=== PATIENT | male | born 1945 | race Caucasian/White ===

== ENCOUNTER 2023-12-02 08:14 | Outpatient (RCR) | payer OTHER, SELFPAY ==
[2023-11-06 10:31] LABS: Glucose - Point of Care 101 mg/dl (70-99)
[2023-11-09 08:11] LABS: Glucose - Point of Care 89 mg/dl (70-99)
[2023-11-11 08:07] LABS: Glucose - Point of Care 71 mg/dl (70-99)
[2023-11-11 08:28] LABS: Glucose - Point of Care 71 mg/dl (70-99)
[2023-11-11 08:49] LABS: Glucose - Point of Care 98 mg/dl (70-99)
[2023-11-13 08:18] LABS: Glucose - Point of Care 124 mg/dl (70-99)
[2023-11-13 09:15] LABS: Glucose - Point of Care 120 mg/dl (70-99)
[2023-11-16 08:19] LABS: Glucose - Point of Care 101 mg/dl (70-99)
[2023-11-16 09:14] LABS: Glucose - Point of Care 152 mg/dl (70-99)
[2023-11-18 08:14] LABS: Glucose - Point of Care 152 mg/dl (70-99)
[2023-11-18 09:07] LABS: Glucose - Point of Care 136 mg/dl (70-99)
[2023-11-23 08:20] LABS: Glucose - Point of Care 179 mg/dl (70-99)
[2023-11-23 09:01] LABS: Glucose - Point of Care 167 mg/dl (70-99)
[2023-11-25 08:11] LABS: Glucose - Point of Care 186 mg/dl (70-99)
[2023-11-25 08:58] LABS: Glucose - Point of Care 169 mg/dl (70-99)
[2023-11-27 08:27] LABS: Glucose - Point of Care 210 mg/dl (70-99)
[2023-11-27 09:28] LABS: Glucose - Point of Care 167 mg/dl (70-99)
[2023-11-30 08:20] LABS: Glucose - Point of Care 144 mg/dl (70-99)
[2023-11-30 09:16] LABS: Glucose - Point of Care 126 mg/dl (70-99)
[2023-12-02 08:04] LABS: Glucose - Point of Care 226 mg/dl (70-99)
== END 2023-12-02 23:59 | disposition home or self-care (01) ==
LOC: CRHB 08:14
PROVIDERS: ATTENDING PHYSICIAN Internal Medicine Cardiovascular Disease
DX: I25.10 Atherosclerotic heart disease of native coronary artery without angina pectoris (principal); Z95.1 Presence of aortocoronary bypass graft; I25.2 Old myocardial infarction
CPT/HCPCS: 82962; G0422; G0423

== ENCOUNTER 2023-12-30 08:13 | Outpatient (RCR) | payer OTHER, SELFPAY ==
[2023-12-23 08:18] LABS: Glucose - Point of Care 175 mg/dl (70-99)
== END 2023-12-30 23:59 | disposition home or self-care (01) ==
LOC: CRHB 08:13
PROVIDERS: ATTENDING PHYSICIAN Internal Medicine Cardiovascular Disease; FAMILY PHYSICIAN Family Medicine
DX: I25.10 Atherosclerotic heart disease of native coronary artery without angina pectoris (principal); Z95.1 Presence of aortocoronary bypass graft; I25.2 Old myocardial infarction
CPT/HCPCS: 82962; G0422; G0423

== ENCOUNTER 2024-01-27 07:54 | Outpatient (RCR) | payer OTHER, SELFPAY ==
[2024-01-18 09:11] LABS: HDL Cholesterol 57 mg/dl; LDL Cholesterol, Calculated 30 mg/dl; Total Cholesterol 107 mg/dl (50-199); Triglyceride 103 mg/dl (10-149); Very Low Density Lipoprotein 20 mg/dl (0-30)
== END 2024-01-27 23:59 | disposition home or self-care (01) ==
LOC: CRHB 07:54
PROVIDERS: ATTENDING PHYSICIAN Internal Medicine Cardiovascular Disease; FAMILY PHYSICIAN Family Medicine; REFERRING PHYSICIAN Internal Medicine Cardiovascular Disease
DX: Z95.1 Presence of aortocoronary bypass graft (principal); I25.2 Old myocardial infarction
CPT/HCPCS: 80061; G0422; G0423

== ENCOUNTER 2024-02-12 08:22 | Emergency (ER) | payer OTHER, SELFPAY ==
[2024-02-12 08:22] VITALS: BMI 30.6
[2024-02-12 08:23] VITALS: BP 186/97
--- NOTE | 2024-02-12 09:41 | ED.GENMED ---
History of Present Illness
General
Chief Complaint: Blood Pressure Problem
Source: patient
Time Seen by Provider: 02/12/24 09:10
Travel History
Have you had any contact with someone who has COVID-19?: No
Do you have any symptoms of coronavirus? Fever > 100 degrees, chills, cough, shortness of breath, sore throat, loss of taste or smell, muscle aches, or headache?: No
History of Present Illness
History of Present Illness:
This patient is a 78-year-old male who had a cardiac bypass in September, just finished cardiac rehab at the end of December. He was noted to have elevated blood pressure on around February 04 and has been instructed to every day. He has noticed that it
has been elevated at home. He went to cardiac rehab today to confirm the accuracy of this reading and his blood pressure was reportedly noted to be in the 200s over 100s. He was referred to the emergency department. Patient is generally compliant
with his medications. He denies any symptoms. He specifically denies chest pain, headache, dizziness, numbness, tingling, dyspnea, abdominal pain, or other complaints.
Past History
Past History
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
ED Past Surgical History: Appendectomy, Bowel resection (Colon CA with Ileostomy with Reversal), Cardiac (Stents X1), Cholecystectomy and Other (Colon resection for diverticulitis and then again recently for colon cancer.)
Social History
Tobacco: Non-smoker
Alcohol: Occasional
Drug: None
Personal:
Living: with family
Employment: Employed
Family History
Family History: Diabetes, Hypertension and CAD
Phy Exam
Physical Exam
Physical Exam:
GENERAL: Alert , in no apparent distress
EYE: pupils equal and reactive
NECK: Supple, no significant adenopathy.
ENT: o/p clr, mmm.
CARDIAC: Regular rate and rhythm .
LUNGS: Clear breath sounds bilaterally, no acute respiratory distress, no wheezes/rales/rhonchi
ABDOMEN: Soft, without focal tenderness, no r/g, no cvat
NEUROLOGICAL: Alert and oriented, no focal neuro deficits
SKIN: Warm and dry, skin intact.
MUSCULOSKELETAL: No edema, well perfused.
PSYCH: Normal and appropriate interaction.
Course
Orders/Labs/Results
Orders:
Orders
02/12/24 10:14
Lisinopril [Zestril] 5 mg PO NOW STA
Vital Signs
Initial and Last Documented VS:
Initial Vital Signs
Pulse Resp BP Pulse Ox
67 18 186/97 95
02/12/24 08:23 02/12/24 08:23 02/12/24 08:23 02/12/24 08:23
Last Documented Vital Signs
Pulse Resp BP Pulse Ox
62 12 162/86 95
02/12/24 10:00 02/12/24 10:00 02/12/24 10:00 02/12/24 08:23
*Critical Care Note
Total Time (30-74mins, 75-104mins- exclusive of procedures): Not Applicable
Update Note
Update Note:
Patient presents to the Emergency Department with ___elevated blood pressure
Number and Complexity of Problems Addressed at the Encounter
� Chronic conditions affecting care:
� Acute Exacerbation and/or Progression of Chronic Illness:
� Differential Diagnosis includes: But not limited to medication noncompliance, medication resistant hypertension, etc.
Amount and/or Complexity of Data to be Reviewed and Analyzed
� I performed an independent evaluation of and my interpretation is:
EKG:
CT:
Xrays:
Laboratory Studies:
Other:
� Review of other/old records reveals: [facility], noted to be on metoprolol 25 daily
� Clinical information was obtained by an independent historian:
� Prescriptions/Medications Considered but not given:
� Further testing considered but not performed:
Risk of Complications and/or Morbidity or Mortality of Patient Management
� Social determinants of health affecting care:
� Discussion with other providers (PCP, Hospitalists, Consultants, etc):
� Escalation of care including admission/observation vs risk of discharge considered:10:17 AM Case discussed with Dr. Dobbs via [facility] text, aware of history, physical, vitals, etc. He confirmed his medication list through
office records and recommends either increasing his beta-sanjay or adding a BEN inhibitor. I informed him that I will add an BEN inhibitor, lisinopril 5 mg daily, and Dr. Osuna and his office will follow-up with patient within 2 weeks and
check a BMP at that time. Patient advised about importance of follow-up and reasons to return to the emergency department. He remains asymptomatic, and therefore workup not indicated here in the emergency department otherwise.
ED Attending Note
-
Portions of this chart may have been created with voice recognition software.� Occasional wrong word or��sound alike� substitutions may have occurred due to the inherent limitations of voice recognition software.
Discharge Plan
Departure
Patient Disposition: Home (Routine Discharge)
Date of Disposition: 02/12/24
Time of Disposition: 10:14
Patient with high blood pressure during this ER visit?: Yes
Condition: Good
Discharge Problem:
Hypertension
Instructions: High Blood Pressure (DC), BLOOD PRESSURE
Prescriptions:
New
lisinopril 5 mg tablet
5 mg PO DAILY Qty: 30 0RF
No Action
aspirin 81 MG tablet,delayed release (DR/EC)
81 mg PO HS
oxycodone 5 MG tablet
5 mg PO Q6HPRN PRN (Reason: pain)
Patient Comments:
Last filled 06/09/23 #90 x30 day supply
insulin aspart U-100 [Novolog FlexPen U-100 Insulin] 100 unit/mL (3 mL) Insulin Pen
11 unit SC AC Qty: 5 0RF
Rx Instructions:
E11.65
insulin glargine [Lantus Solostar U-100 Insulin] 100 unit/mL (3 mL) Insulin Pen
22 unit SC HS Qty: 5 0RF
Rx Instructions:
E11.65
acetaminophen 325 mg Tablet
650 mg PO Q4HPRN PRN (Reason: mild pain,headache,temp >101F ) Qty: 0 0RF
gabapentin 400 mg Capsule
400 mg PO BID Qty: 60 0RF
metoprolol succinate 25 mg Tablet Extended Release 24 Hr
25 mg PO DAILY Qty: 30 1RF
atorvastatin 40 mg Tablet
40 mg PO HS Qty: 30 0RF
(DME) pen needle, diabetic [BD Ultra-Fine Vandana Pen Needle] 32 gauge x 5/32' Needle
Qty: 200 0RF
Rx Instructions:
Use needles 4 x per day for insulin injections As Directed E11.65
Referrals:
Karel Gustafson DO [Active] - Next open appointment (in 2 weeks)
Nick Mccray MD [Family Provider] -
Activity Restrictions/Additional Instructions:
PLEASE RECORD YOUR BLOOD PRESSURE DIRECTED EVERY DAY. PLEASE MAKE AN APPOINTMENT TO SEE YOUR RESPITE PROVIDER IN FOLLOW-UP WITHIN 2 WEEKS. YOU WILL NEED BLOOD WORK CHECKED AT THAT TIME. IF YOU DEVELOP SEVERE HEADACHE, CHEST PAIN, SHORTNESS OF
BREATH, ABDOMINAL PAIN, OR OTHER WORRISOME SIGNS, PLEASE RETURN TO THE ER IMMEDIATELY.
Interventions
Interventions:
*Risk Screen - Suicide Last Done: 02/12/24 10:03
*General Assessment Last Done: 02/12/24 10:03
*Neglect/Abuse Screening Last Done: 02/12/24 10:03
*ED COVID-19 Vaccine History Last Done: 02/12/24 10:09
ED- Cardiac Assessment Last Done: 02/12/24 10:03
ED- Neurological Assessment Last Done: 02/12/24 10:03
ED- Pulmonary Assessment Last Done: 02/12/24 10:03
Discharge Date and Time
Print Language: ARABIC
[2024-02-12 10:00] VITALS: BP 162/86
[2024-02-12] MEDS: ZESTRIL 5 MG PO (10:33)
== END 2024-02-12 10:39 | disposition home or self-care (01) ==
LOC: EMR 08:22
PROVIDERS: EMERGENCY PHYSICIAN Emergency Medicine; FAMILY PHYSICIAN Family Medicine
DX: I10 Essential (primary) hypertension (principal)
CPT/HCPCS: 99283

== ENCOUNTER → 2024-02-29 07:15 | Outpatient (REF) | payer OTHER, SELFPAY ==
[2024-02-29 08:39] LABS: Blood Urea Nitrogen 25 mg/dl (9-20); Calcium 9.4 mg/dl (8.4-10.2); Carbon Dioxide 26 mmol/L (22-30); Chloride 104 mmol/L (98-107); Glucose 87 mg/dl (70-99); Potassium 4.2 mmol/L (3.5-5.1); Sodium 140 mmol/L (135-145); eGFR 51.13
== END ==
LOC: REG 07:15
PROVIDERS: ATTENDING PHYSICIAN Internal Medicine Cardiovascular Disease; FAMILY PHYSICIAN Family Medicine
DX: I25.10 Atherosclerotic heart disease of native coronary artery without angina pectoris (principal); I10 Essential (primary) hypertension; E78.2 Mixed hyperlipidemia
CPT/HCPCS: 36415; 80048

== ENCOUNTER → 2024-03-29 07:53 | Outpatient (REF) | payer OTHER, SELFPAY ==
[2024-03-29 08:59] LABS: Blood Urea Nitrogen 22 mg/dl (9-20); Calcium 9.6 mg/dl (8.4-10.2); Carbon Dioxide 27 mmol/L (22-30); Chloride 105 mmol/L (98-107); Glucose 141 mg/dl (70-99); Potassium 5.2 mmol/L (3.5-5.1); Sodium 143 mmol/L (135-145); eGFR > 60.00
== END ==
LOC: REG 07:53
PROVIDERS: ATTENDING PHYSICIAN Internal Medicine Cardiovascular Disease
DX: I10 Essential (primary) hypertension (principal)
CPT/HCPCS: 36415; 80048

== ENCOUNTER → 2024-04-04 07:37 | Outpatient (REF) | payer OTHER, SELFPAY ==
[2024-04-04 09:23] LABS: Blood Urea Nitrogen 21 mg/dl (9-20); Calcium 9.3 mg/dl (8.4-10.2); Carbon Dioxide 28 mmol/L (22-30); Chloride 104 mmol/L (98-107); Glucose 133 mg/dl (70-99); Potassium 4.6 mmol/L (3.5-5.1); Sodium 141 mmol/L (135-145); eGFR 55.88
== END ==
LOC: REG 07:37
PROVIDERS: ATTENDING PHYSICIAN Nurse Practitioner
DX: I10 Essential (primary) hypertension (principal)
CPT/HCPCS: 36415; 80048

== ENCOUNTER → 2024-04-15 06:58 | Outpatient (REF) | payer OTHER, SELFPAY ==
[2024-04-15 08:46] LABS: Blood Urea Nitrogen 26 mg/dl (9-20); Calcium 9.2 mg/dl (8.4-10.2); Carbon Dioxide 26 mmol/L (22-30); Chloride 106 mmol/L (98-107); Glucose 133 mg/dl (70-99); Potassium 4.5 mmol/L (3.5-5.1); Sodium 143 mmol/L (135-145); eGFR > 60.00
== END ==
LOC: REG 06:58
PROVIDERS: ATTENDING PHYSICIAN Internal Medicine Cardiovascular Disease; FAMILY PHYSICIAN Family Medicine
DX: I10 Essential (primary) hypertension (principal)
CPT/HCPCS: 36415; 80048

== ENCOUNTER → 2024-05-24 13:27 | Outpatient (REF) | payer OTHER, SELFPAY | LOC: RAD 13:27 | PROVIDERS: ATTENDING PHYSICIAN Internal Medicine Cardiovascular Disease; FAMILY PHYSICIAN Family Medicine | DX: I1A.0 Resistant hypertension (principal); I10 Essential (primary) hypertension | CPT/HCPCS: 36415; 82088; 83835; 84244; 93975 ==

== ENCOUNTER 2024-07-25 09:18 | Emergency (ER) | payer OTHER, SELFPAY ==
[2024-07-25 09:27] VITALS: BP 150/89
--- NOTE | 2024-07-25 09:48 | ED.GENMED ---
History of Present Illness
General
Chief Complaint: Swelling
Time Seen by Provider: 07/25/24 09:34
History of Present Illness
History of Present Illness:
78-year-old male with history of coronary artery disease status post CABG x 3 and insulin-dependent diabetes presents to the emergency department for evaluation of bilateral lower extremity edema waxing and waning over the past 4 to 5 days. He is
concerned that he had a spider bite to the left forearm and that this may be related. Edema does seem to improve first thing in the morning before worsening throughout the day. Denies any distal paresthesias. No fever, chills, or sweats
Past History
Past History
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
ED Past Surgical History: Appendectomy, Bowel resection (Colon CA with Ileostomy with Reversal), Cardiac (Stents X1), Cholecystectomy and Other (Colon resection for diverticulitis and then again recently for colon cancer.)
Social History
Tobacco: Non-smoker
Alcohol: Occasional
Drug: None
Personal:
Living: with family
Employment: Employed
Family History
Family History: Diabetes, Hypertension and CAD
Review of Systems
Review of Systems
Allergies reviewed?: Yes
All Other Systems: ROS reviewed and negative except as documented in HPI and ROS
Phy Exam
Physical Exam
Physical Exam:
GEN: Well appearing, NAD, WDWN
HEENT: Oral mucosa moist, no scleral icterus
Cardiac: Regular rate
Lung: No respiratory distress, no tachypnea
MSK: Diffuse edema bilateral lower extremities from the mid calf down, dorsalis pedis pulse 2+ bilaterally, sensation intact in all rascon, no erythema or open wounds
Skin: Good color, no pallor or jaundice, no rashes
Neuro: AO x3, moves all extremities freely
Psych: Calm, cooperative
Scores
Heart Failure Risk
Heart Failure Risk Score: Not Applicable
Course
Orders/Labs/Results
Orders:
Orders
07/25/24 09:48
Venous Doppler Lwr Ext Bilat [US Periph Venous LOWER Ext Savage] Urgent
Comment:
Reason For Exam: new onset edema
Vital Signs
Initial and Last Documented VS:
Initial Vital Signs
Temp Pulse Resp BP Pulse Ox
98.0 F 72 18 150/89 96
07/25/24 09:27 07/25/24 09:27 07/25/24 09:27 07/25/24 09:27 07/25/24 09:27
Last Documented Vital Signs
Temp Pulse Resp BP Pulse Ox
98.2 F 79 18 147/78 98
07/25/24 09:27 07/25/24 10:43 07/25/24 10:43 07/25/24 10:43 07/25/24 10:43
MDM/Problems Addressed
MDM/Problems Addressed:
Ultrasounds unremarkable for DVT. Likely dependent edema, educated the patient on supportive care, he will see his rolled seat trimmer Thursday recommend he discuss any potential benefit of diuresis if symptoms are worsening. He has no respiratory symptoms
or chest pain, do not suspect any correlation to CHF
*Critical Care Note
Total Time (30-74mins, 75-104mins- exclusive of procedures): Not Applicable
ED Attending Note
-
Portions of this chart may have been created with voice recognition software.� Occasional wrong word or��sound alike� substitutions may have occurred due to the inherent limitations of voice recognition software.
Discharge Plan
Departure
Patient Disposition: Home (Routine Discharge)
Date of Disposition: 07/25/24
Time of Disposition: 12:19
Patient with high blood pressure during this ER visit?: No
Discharge Problem:
Bilateral edema of lower extremity
Instructions: Dependent Edema (DC)
Prescriptions:
No Action
aspirin 81 MG tablet,delayed release (DR/EC)
81 mg PO HS
oxycodone 5 MG tablet
5 mg PO Q6HPRN PRN (Reason: pain)
Patient Comments:
Last filled 06/09/23 #90 x30 day supply
insulin aspart U-100 [Novolog FlexPen U-100 Insulin] 100 unit/mL (3 mL) Insulin Pen
11 unit SC AC Qty: 5 0RF
Rx Instructions:
E11.65
insulin glargine [Lantus Solostar U-100 Insulin] 100 unit/mL (3 mL) Insulin Pen
22 unit SC HS Qty: 5 0RF
Rx Instructions:
E11.65
acetaminophen 325 mg Tablet
650 mg PO Q4HPRN PRN (Reason: mild pain,headache,temp >101F ) Qty: 0 0RF
gabapentin 400 mg Capsule
400 mg PO BID Qty: 60 0RF
metoprolol succinate 25 mg Tablet Extended Release 24 Hr
25 mg PO DAILY Qty: 30 1RF
atorvastatin 40 mg Tablet
40 mg PO HS Qty: 30 0RF
(DME) pen needle, diabetic [BD Ultra-Fine Vandana Pen Needle] 32 gauge x 5/32' Needle
Qty: 200 0RF
Rx Instructions:
Use needles 4 x per day for insulin injections As Directed E11.65
lisinopril 5 mg tablet
5 mg PO DAILY Qty: 30 0RF
Referrals:
Nick Mccray MD [Family Provider] -
Interventions
Interventions:
*Risk Screen - Suicide Last Done: 07/25/24 09:27
*General Assessment Last Done: 07/25/24 09:27
*Neglect/Abuse Screening Last Done: 07/25/24 09:27
*Nursing Disposition Last Done: 07/25/24 12:26
ED- Cardiac Assessment Last Done: 07/25/24 10:34
ED- Pulmonary Assessment Last Done: 07/25/24 10:33
ED-Skin Assessment Last Done: 07/25/24 10:33
Discharge Date and Time
Discharge Date/Time: 07/25/24 12:26
Print Language: ROMANIAN
[2024-07-25 10:43] VITALS: BP 147/78
== END 2024-07-25 12:26 | disposition home or self-care (01) ==
LOC: EMR 09:18
PROVIDERS: EMERGENCY PHYSICIAN Emergency Medicine; FAMILY PHYSICIAN Family Medicine
DX: R60.0 Localized edema (principal); I25.10 Atherosclerotic heart disease of native coronary artery without angina pectoris; E11.9 Type 2 diabetes mellitus without complications; E78.00 Pure hypercholesterolemia, unspecified; I10 Essential (primary) hypertension; I25.2 Old myocardial infarction; Z79.82 Long term (current) use of aspirin; Z79.4 Long term (current) use of insulin; Z86.718 Personal history of other venous thrombosis and embolism; Z86.711 Personal history of pulmonary embolism; Z85.048 Personal history of other malignant neoplasm of rectum, rectosigmoid junction, and anus; Z85.038 Personal history of other malignant neoplasm of large intestine; Z95.1 Presence of aortocoronary bypass graft; Z95.5 Presence of coronary angioplasty implant and graft; Z90.49 Acquired absence of other specified parts of digestive tract; Z98.0 Intestinal bypass and anastomosis status; Z88.8 Allergy status to other drugs, medicaments and biological substances
CPT/HCPCS: 99284; 93970

== ENCOUNTER 2024-08-09 14:33 | Emergency (ER) | payer OTHER, SELFPAY ==
--- NOTE | 2024-08-09 14:44 | ED.GENMED ---
ED Provider Triage
-
Patient seen by provider in Triage?: Seen in Triage
Attestation: A medical screening examination has been initiated by a qualified medical provider. Based on the assessment performed at this time, it has been determined that an emergent medical condition may exist and the patient has been informed
that further medical evaluation and possible additional diagnostic testing may be needed.
HPI: 78-year-old male with history of CAD status post CABG presents with mid to upper back pain occurring intermittently for the past several weeks. Pain is not constant, nonpleuritic. Does note that he has had increased lower extremity edema
recently. Recent DVT studies were negative. Pain is worse when attempting to get up
GENERAL: Alert , in no apparent distress
EYE: No visual abnormalities.
NECK: Trachea midline
ENT: No visible abnormalities.
LUNGS: No acute respiratory distress
NEUROLOGICAL: Alert and oriented
SKIN: Skin intact. No visible changes.
MUSCULOSKELETAL: Moving extremities normally
PSYCH: Normal and appropriate interaction.
A/P: Reassuring that he has movement based pain, this is likely mechanical nevertheless given his coronary disease will check EKG and cardiac labs. Low level suspicion for PE given the intermittent nature, lack of pleuritic pain, and recent
negative DVT studies thus will not obtain a D-dimer at this time
This is a medical evaluation conducted in person to initiate diagnostic evaluation and provide initial therapeutics. Please see further documentation by the treating clinician.
History of Present Illness
General
Chief Complaint: Back Pain
Past History
Past History
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
ED Past Surgical History: Appendectomy, Bowel resection (Colon CA with Ileostomy with Reversal), Cardiac (Stents X1), Cholecystectomy and Other (Colon resection for diverticulitis and then again recently for colon cancer.)
Social History
Tobacco: Non-smoker
Alcohol: Occasional
Drug: None
Personal:
Living: with family
Employment: Employed
Family History
Family History: Diabetes, Hypertension and CAD
Course
Orders/Labs/Results
Orders:
Orders
08/09/24 14:39
ECG [Electrocardiogram (*1)] Urgent
Reason for Study: Chest Pain
EKG- Treatment ONCE
08/09/24 14:44
Complete Blood Count/With Diff Urgent
Comprehensive Metabolic Panel Urgent
D-Dimer Urgent
Troponin I Urgent
Vital Signs
Initial and Last Documented VS:
Initial Vital Signs
Temp Pulse Resp Pulse Ox
98.0 F 63 18 97
08/09/24 14:40 08/09/24 14:40 08/09/24 14:40 08/09/24 14:40
Last Documented Vital Signs
Temp Pulse Resp Pulse Ox
98.0 F 63 18 97
08/09/24 14:40 08/09/24 14:40 08/09/24 14:40 08/09/24 14:40
ED Attending Note
-
Portions of this chart may have been created with voice recognition software.� Occasional wrong word or��sound alike� substitutions may have occurred due to the inherent limitations of voice recognition software.
Discharge Plan
Departure
Prescriptions:
No Action
aspirin 81 MG tablet,delayed release (DR/EC)
81 mg PO HS
oxycodone 5 MG tablet
5 mg PO Q6HPRN PRN (Reason: pain)
Patient Comments:
Last filled 06/09/23 #90 x30 day supply
insulin aspart U-100 [Novolog FlexPen U-100 Insulin] 100 unit/mL (3 mL) Insulin Pen
11 unit SC AC Qty: 5 0RF
Rx Instructions:
E11.65
insulin glargine [Lantus Solostar U-100 Insulin] 100 unit/mL (3 mL) Insulin Pen
22 unit SC HS Qty: 5 0RF
Rx Instructions:
E11.65
acetaminophen 325 mg Tablet
650 mg PO Q4HPRN PRN (Reason: mild pain,headache,temp >101F ) Qty: 0 0RF
gabapentin 400 mg Capsule
400 mg PO BID Qty: 60 0RF
metoprolol succinate 25 mg Tablet Extended Release 24 Hr
25 mg PO DAILY Qty: 30 1RF
atorvastatin 40 mg Tablet
40 mg PO HS Qty: 30 0RF
(DME) pen needle, diabetic [BD Ultra-Fine Vandana Pen Needle] 32 gauge x 5/32' Needle
Qty: 200 0RF
Rx Instructions:
Use needles 4 x per day for insulin injections As Directed E11.65
lisinopril 5 mg tablet
5 mg PO DAILY Qty: 30 0RF
Discharge Date and Time
Print Language: KAZAKH
[2024-08-09 14:45] VITALS: BP 170/75
[2024-08-09 15:13] LABS: % Basophils 0.7 % (0-2); % Eosinophils 1.6 % (0-6); % Immature Granulocytes 0.2 % (0-0.5); % Lymphocytes 14.2 % (20.5-51.1); % Monocytes 8.2 % (1.7-9.3); % Neutrophils 75.1 % (42.2-75.2); Absolute Eosinophils 0.1 10^3/uL (0-0.7); Absolute Lymphocytes 0.6 10^3/uL (1.2-3.4); Absolute Monocytes 0.4 10^3/uL (0.1-0.6); Absolute Neutrophils 3.3 10^3/uL (1.4-6.5); Hematocrit 37.2 % (39.0-52.0); Hemoglobin 13.1 g/dL (13.0-18.0); Mean Corp Hgb Conc. 35.2 g/dL (33.0-37.0); Mean Corpuscular Hgb 31.6 pg (27.0-31.0); Mean Corpuscular Volume 89.6 fL (80.0-94.0); Mean Platelet Volume 10.8 fL (7.4-10.4); Nucleated Red Blood Cells % 0 % (-); Platelet Count 154 10^3/uL (130-400); Red Blood Cell Count 4.15 10^6/uL (4.70-6.10); Red Cell Dist. Width 13.2 % (11.5-14.5); White Blood Cell Count 4.4 10^3/uL (4.8-10.8)
[2024-08-09 15:21] LABS: ALT (SGPT) 25 U/L (0-50); AST (SGOT) 25 U/L (17-59); Albumin 4.1 g/dl (3.5-5.0); Alkaline Phosphatase 92 U/L (38-126); Blood Urea Nitrogen 19 mg/dl (9-20); Calcium 8.8 mg/dl (8.4-10.2); Carbon Dioxide 27 mmol/L (22-30); Chloride 104 mmol/L (98-107); Glucose 276 mg/dl (70-99); Potassium 4.3 mmol/L (3.5-5.1); Sodium 141 mmol/L (135-145); Total Bilirubin 1.5 mg/dl (0.2-1.3); Total Protein 6.6 g/dl (6.3-8.2); eGFR > 60.00
[2024-08-09 15:33] LABS: Troponin I < 0.012 ng/ml
[2024-08-09 19:38] LABS: D-Dimer 0.48 ug/mlFEU (0.00-0.50)
[2024-08-09 20:50] VITALS: BP 154/82
--- NOTE | 2024-08-10 10:09 | ED.GENMED ---
ED Provider Triage
<Devante Platt PA-C - Last Filed: 08/10/24 15:55>
-
Patient seen by provider in Triage?: Seen in Triage
Attestation: A medical screening examination has been initiated by a qualified medical provider. Based on the assessment performed at this time, it has been determined that an emergent medical condition may exist and the patient has been informed
that further medical evaluation and possible additional diagnostic testing may be needed.
HPI: 78-year-old male with history of CAD status post CABG presents with mid to upper back pain occurring intermittently for the past several weeks. Pain is not constant, nonpleuritic. Does note that he has had increased lower extremity edema
recently. Recent DVT studies were negative. Pain is worse when attempting to get up
GENERAL: Alert , in no apparent distress
EYE: No visual abnormalities.
NECK: Trachea midline
ENT: No visible abnormalities.
LUNGS: No acute respiratory distress
NEUROLOGICAL: Alert and oriented
SKIN: Skin intact. No visible changes.
MUSCULOSKELETAL: Moving extremities normally
PSYCH: Normal and appropriate interaction.
A/P: Reassuring that he has movement based pain, this is likely mechanical nevertheless given his coronary disease will check EKG and cardiac labs. Low level suspicion for PE given the intermittent nature, lack of pleuritic pain, and recent
negative DVT studies thus will not obtain a D-dimer at this time
This is a medical evaluation conducted in person to initiate diagnostic evaluation and provide initial therapeutics. Please see further documentation by the treating clinician.
History of Present Illness
<Devante Platt PA-C - Last Filed: 08/10/24 15:55>
General
Chief Complaint: Back Pain
Time Seen by Provider: 08/09/24 17:08
<Laura Rachel NP - Last Filed: 08/10/24 15:42>
General
Source: patient
Nursing documentation reviewed up to this point in time: agreed with
History of Present Illness
History of Present Illness:
Patient to ED with complaint of middle back pain. Symptoms started 2 weeks ago. No associated fever/chills, SOB, cough, abdomina pain, n/v/d. Pain worse with movement. No weakness in extremities, no history of trauma, no prior history of same.
Past History
<Devante Platt PA-C - Last Filed: 08/10/24 15:55>
Past History
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
ED Past Surgical History: Appendectomy, Bowel resection (Colon CA with Ileostomy with Reversal), Cardiac (Stents X1), Cholecystectomy and Other (Colon resection for diverticulitis and then again recently for colon cancer.)
Social History
Tobacco: Non-smoker
Alcohol: Occasional
Drug: None
Personal:
Living: with family
Employment: Employed
Family History
Family History: Diabetes, Hypertension and CAD
Review of Systems
<Laura Rachel NP - Last Filed: 08/10/24 15:42>
Review of Systems
Allergies reviewed?: Yes
All Other Systems: ROS reviewed and negative except as documented in HPI and ROS
Constitutional: Reports no symptoms
EENT: Reports no symptoms
Respiratory: Reports no symptoms
Cardiac: Reports no symptoms
ABD/GI: Reports no symptoms
: Reports no symptoms
Musculoskeletal: Reports back pain (Pain across middle back. No radiation of pain, no weakness in extremities.)
Skin: Reports no symptoms
Neurological: Reports no symptoms
Psychiatric: Reports no symptoms
Phy Exam
<Laura Rachel NP - Last Filed: 08/10/24 15:42>
General Physical Exam
General Presentation: well appearing and no apparent distress
General age: appears stated age
General Skin: warm and dry
General Habitus: normal
General Mental: alert
General Hydration: appears well hydrated
Cardiovascular Exam
Cardiovascular Exam: regular rate/rhythm and no edema
Pulmonary Exam
Pulmonary Exam: lungs clear, no respiratory distress and chest non tender
Gastrointestinal Exam
Gastrointestinal Exam: normal bowel sounds, non tender, soft and no organomegaly
Musculoskeletal Exam
Musculoskeletal Exam: full ROM and neuro vasc intact
Skin Exam
Skin Exam: normal color, warm/dry and no rash
Psychiatric Exam
Psychiatric Exam: normal mood/affect
Course
<Devante Platt PA-C - Last Filed: 08/10/24 15:55>
Orders/Labs/Results
Orders:
Orders
08/09/24 14:39
ECG [Electrocardiogram (*1)] Urgent
Reason for Study: Chest Pain
EKG- Treatment ONCE
08/09/24 14:55
Complete Blood Count/With Diff Urgent
Comprehensive Metabolic Panel Urgent
Troponin I Urgent
08/09/24 18:36
Chest [CR Chest - 2 Views ] Stat
Comment:
Reason For Exam: pain
08/09/24 19:15
D-Dimer Urgent
Abnormal Lab Results
08/09/24
14:55
WBC 4.4 L 10^3/uL
(4.8-10.8)
RBC 4.15 L 10^6/uL
(4.70-6.10)
Hct 37.2 L %
(39.0-52.0)
MCH 31.6 H pg
(27.0-31.0)
MPV 10.8 H fL
(7.4-10.4)
Absolute Lymphs (auto) 0.6 L 10^3/uL
(1.2-3.4)
Lymphocytes % 14.2 L %
(20.5-51.1)
Glucose 276 H mg/dl
(70-99)
Total Bilirubin 1.5 H mg/dl
(0.2-1.3)
08/09/24 14:55
08/09/24 14:55
Vital Signs
Initial and Last Documented VS:
Initial Vital Signs
Temp Pulse Resp Pulse Ox
98.0 F 63 18 97
08/09/24 14:40 08/09/24 14:40 08/09/24 14:40 08/09/24 14:40
Last Documented Vital Signs
Temp Pulse Resp BP Pulse Ox
98.0 F 62 18 154/82 98
08/09/24 14:40 08/09/24 20:50 08/09/24 20:50 08/09/24 20:50 08/09/24 20:50
<Laura Rachel NP - Last Filed: 08/10/24 15:42>
Orders/Labs/Results
Orders:
Orders
08/09/24 14:39
ECG [Electrocardiogram (*1)] Urgent
Reason for Study: Chest Pain
EKG- Treatment ONCE
08/09/24 14:55
Complete Blood Count/With Diff Urgent
Comprehensive Metabolic Panel Urgent
Troponin I Urgent
08/09/24 18:36
Chest [CR Chest - 2 Views ] Stat
Comment:
Reason For Exam: pain
08/09/24 19:15
D-Dimer Urgent
Abnormal Lab Results
08/09/24
14:55
WBC 4.4 L 10^3/uL
(4.8-10.8)
RBC 4.15 L 10^6/uL
(4.70-6.10)
Hct 37.2 L %
(39.0-52.0)
MCH 31.6 H pg
(27.0-31.0)
MPV 10.8 H fL
(7.4-10.4)
Absolute Lymphs (auto) 0.6 L 10^3/uL
(1.2-3.4)
Lymphocytes % 14.2 L %
(20.5-51.1)
Glucose 276 H mg/dl
(70-99)
Total Bilirubin 1.5 H mg/dl
(0.2-1.3)
08/09/24 14:55
08/09/24 14:55
Vital Signs
Initial and Last Documented VS:
Initial Vital Signs
Temp Pulse Resp Pulse Ox
98.0 F 63 18 97
08/09/24 14:40 08/09/24 14:40 08/09/24 14:40 08/09/24 14:40
Last Documented Vital Signs
Temp Pulse Resp BP Pulse Ox
98.0 F 62 18 154/82 98
08/09/24 14:40 08/09/24 20:50 08/09/24 20:50 08/09/24 20:50 08/09/24 20:50
<Laura Rachel NP - Last Filed: 08/10/24 15:42>
MDM/Problems Addressed
Differential Diagnosis Includes:
Patient to ED wtih complaint of middle back pain x 2 weeks. No radiation of pain, no history of trauma. No SOB, CP/pressure. Labs, cxr reviewed, no findings to explain his symtoms today. VSS. Will discharge home, close followup with PCP. Given
instructions on s/s to return to ED and he is agreeable to plan. Differential includes but not limited to PE, pneumonia, cholecystitis/pancreatitis, AAA, renal stones, ACS.
<Laura Rachel NP - Last Filed: 08/10/24 15:42>
*Radiology
Radiology exam reviewed: radiology read reviewed
*Pulse Oximetry
Patient hypoxic: no
*Critical Care Note
Total Time (30-74mins, 75-104mins- exclusive of procedures): Not Applicable
ED Attending Note
<Devante Platt PA-C - Last Filed: 08/10/24 15:55>
-
Portions of this chart may have been created with voice recognition software.� Occasional wrong word or��sound alike� substitutions may have occurred due to the inherent limitations of voice recognition software.
Discharge Plan
Departure
Patient Disposition: Home (Routine Discharge)
Date of Disposition: 08/09/24
Time of Disposition: 19:49
Patient with high blood pressure during this ER visit?: No
Condition: Good
Covid-19: Not Applicable
Discharge Problem:
Chest pain
Instructions: Upper Back Pain (DC)
Prescriptions:
No Action
aspirin 81 MG tablet,delayed release (DR/EC)
81 mg PO HS
oxycodone 5 MG tablet
5 mg PO Q6HPRN PRN (Reason: pain)
Patient Comments:
Last filled 06/09/23 #90 x30 day supply
insulin aspart U-100 [Novolog FlexPen U-100 Insulin] 100 unit/mL (3 mL) Insulin Pen
11 unit SC AC Qty: 5 0RF
Rx Instructions:
E11.65
insulin glargine [Lantus Solostar U-100 Insulin] 100 unit/mL (3 mL) Insulin Pen
22 unit SC HS Qty: 5 0RF
Rx Instructions:
E11.65
acetaminophen 325 mg Tablet
650 mg PO Q4HPRN PRN (Reason: mild pain,headache,temp >101F ) Qty: 0 0RF
gabapentin 400 mg Capsule
400 mg PO BID Qty: 60 0RF
metoprolol succinate 25 mg Tablet Extended Release 24 Hr
25 mg PO DAILY Qty: 30 1RF
atorvastatin 40 mg Tablet
40 mg PO HS Qty: 30 0RF
(DME) pen needle, diabetic [BD Ultra-Fine Vandana Pen Needle] 32 gauge x 5/32' Needle
Qty: 200 0RF
Rx Instructions:
Use needles 4 x per day for insulin injections As Directed E11.65
lisinopril 5 mg tablet
5 mg PO DAILY Qty: 30 0RF
Referrals:
NONE,* [Family Provider] -
Activity Restrictions/Additional Instructions:
Follow up with your family doctor.
Interventions
Interventions:
*Risk Screen - Suicide Last Done: 08/09/24 14:45
*General Assessment Last Done: 08/09/24 17:00
*Neglect/Abuse Screening Last Done: 08/09/24 14:45
*ED COVID-19 Vaccine History Last Done: 08/09/24 14:45
*Nursing Disposition Last Done: 08/09/24 20:50
ED-Musculoskeletal Assessment Last Done: 08/09/24 17:00
Discharge Date and Time
Discharge Date/Time: 08/09/24 20:53
Print Language: SURINAMESE
Musculoskeletal Injury Exam
<Laura Rachel NP - Last Filed: 08/10/24 15:42>
Musculoskeletal Injury Exam
Bilateral Middle Back:
Pain with Movement?: Moderate
Tender to palpation?: Mild
Soft tissue swelling?: None
External deformity and angulation?: None
Joint effusion?: None
Contusion?: None
Strain- Sprain- Tear (Connective tissue injury)?: Moderate
Crepitus with movement?: No
Joint instability?: No
Malalignment/deformity?: No
Range of motion: Limited
Distal skin color and temperature: normal-warm & good color
Capillary Refill: normal
Normal distal neurovascular exam?: Yes
== END 2024-08-09 20:53 | disposition home or self-care (01) ==
LOC: EMR 14:33
PROVIDERS: Nurse Practitioner; Physician Assistant; EMERGENCY PHYSICIAN Emergency Medicine
DX: R07.89 Other chest pain (principal); I25.10 Atherosclerotic heart disease of native coronary artery without angina pectoris; E11.9 Type 2 diabetes mellitus without complications; E78.00 Pure hypercholesterolemia, unspecified; I10 Essential (primary) hypertension; Z82.49 Family history of ischemic heart disease and other diseases of the circulatory system; Z83.3 Family history of diabetes mellitus; Z85.048 Personal history of other malignant neoplasm of rectum, rectosigmoid junction, and anus; Z86.718 Personal history of other venous thrombosis and embolism; Z90.49 Acquired absence of other specified parts of digestive tract; Z95.1 Presence of aortocoronary bypass graft; Z95.5 Presence of coronary angioplasty implant and graft
CPT/HCPCS: 99283; 71046; 80053; 84484; 85025; 85379; 93005

== ENCOUNTER → 2024-08-19 09:06 | Outpatient (REF) | payer OTHER, SELFPAY | LOC: HWRAD 09:06 | PROVIDERS: ATTENDING PHYSICIAN Internal Medicine Cardiovascular Disease; FAMILY PHYSICIAN Family Medicine | DX: I77.810 Thoracic aortic ectasia (principal) | CPT/HCPCS: 71275; Q9967 ==

== ENCOUNTER → 2025-03-02 10:30 | Outpatient (REF) | payer OTHER, SELFPAY | LOC: RCS 10:30 | PROVIDERS: ATTENDING PHYSICIAN Family Medicine; REFERRING PHYSICIAN Internal Medicine Cardiovascular Disease | DX: I25.10 Atherosclerotic heart disease of native coronary artery without angina pectoris (principal); R53.83 Other fatigue | CPT/HCPCS: 93306 ==

== ENCOUNTER 2025-06-30 06:26 | Day surgery (SDC) | payer OTHER, SELFPAY ==
[2025-06-30 07:47] LABS: Glucose - Point of Care 176 mg/dl (70-99)
== END 2025-06-30 09:35 | disposition home or self-care (01) ==
LOC: GI 06:26
PROVIDERS: ATTENDING PHYSICIAN Specialist
DX: Z12.11 Encounter for screening for malignant neoplasm of colon (principal); D12.5 Benign neoplasm of sigmoid colon; K57.30 Diverticulosis of large intestine without perforation or abscess without bleeding; R19.7 Diarrhea, unspecified; Z85.048 Personal history of other malignant neoplasm of rectum, rectosigmoid junction, and anus; Z98.0 Intestinal bypass and anastomosis status
CPT/HCPCS: 45385; 45380; 45381; 82962; 88305

== ENCOUNTER → 2025-08-05 10:30 | Outpatient (REF) | payer OTHER, SELFPAY ==
[2025-08-05 12:28] LABS: Blood Urea Nitrogen 21 mg/dl (9-20); Calcium 9.1 mg/dl (8.4-10.2); Carbon Dioxide 24 mmol/L (22-30); Chloride 110 mmol/L (98-107); Glucose 192 mg/dl (70-99); Potassium 4.3 mmol/L (3.5-5.1); Sodium 142 mmol/L (135-145); eGFR > 60.00
== END ==
LOC: REG 10:30
PROVIDERS: ATTENDING PHYSICIAN Obstetrics & Gynecology Reproductive Endocrinology; FAMILY PHYSICIAN Family Medicine
DX: I25.10 Atherosclerotic heart disease of native coronary artery without angina pectoris (principal)
CPT/HCPCS: 36415; 80048

== ENCOUNTER → 2025-09-16 08:50 | Outpatient (REF) | payer OTHER, SELFPAY ==
[2025-09-16 10:14] LABS: Blood Urea Nitrogen 40 mg/dl (9-20); Calcium 9.4 mg/dl (8.4-10.2); Carbon Dioxide 29 mmol/L (22-30); Chloride 101 mmol/L (98-107); Glucose 178 mg/dl (70-99); Potassium 4.7 mmol/L (3.5-5.1); Sodium 137 mmol/L (135-145); eGFR 50.81
== END ==
LOC: REG 08:50
PROVIDERS: ATTENDING PHYSICIAN Nurse Practitioner; FAMILY PHYSICIAN Family Medicine
DX: I10 Essential (primary) hypertension (principal); N18.31 Chronic kidney disease, stage 3a
CPT/HCPCS: 36415; 80048

== ENCOUNTER 2025-09-24 03:22 | Emergency (ER) | payer OTHER, SELFPAY ==
[2025-09-24 03:24] VITALS: BP 150/90
[2025-09-24 03:42] VITALS: BMI 28.3
[2025-09-24 03:44] VITALS: BP 126/69
[2025-09-24 04:00] VITALS: BP 114/61
--- NOTE | 2025-09-24 04:17 | ED.GENMED ---
History of Present Illness
<Melida Sepulveda MD, Resident - Last Filed: 09/24/25 04:42>
General
Chief Complaint: Extremity Pain (non-traumatic)
Source: patient
Time Seen by Provider: 09/24/25 04:00
History of Present Illness
History of Present Illness:
Patient is an 79-year-old male, with past medical history significant for essential hypertension, insulin-dependent diabetes mellitus, hyperlipidemia, coronary artery disease s/p PCI in 2013 and CABG for triple-vessel disease in 2022, history of
colorectal cancer s/p bowel resection about 10 years ago, did receive chemotherapy, developed DVT/PE, was placed on Eliquis which was discontinued about 8 years ago.He does have a history of diabetic neuropathy and uses oxycodone 10 mg daily.
For his heart issues, spironolactone was started by cardiology, the dose was increased to 50 mg that resulted in bilateral leg cramping and swelling. The dose of spironolactone was reduced to 25 mg and Lasix was added about 3 weeks ago. He feels
his leg swelling is going down but he still feels that he needs to make sure that there are no blood clots in his legs given his history of DVT/PE. Because of the leg pain, cramping and swelling we will check an ultrasound of the legs to make sure
there are no blood clots.
Denies any chest pain, shortness of breath at rest, palpitations, or any near syncopal episodes.
Past History
<Melida Sepulveda MD, Resident - Last Filed: 09/24/25 04:42>
Past History
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
ED Past Surgical History: Appendectomy, Bowel resection (Colon CA with Ileostomy with Reversal), Cardiac (Stents X1), Cholecystectomy and Other (Colon resection for diverticulitis and then again recently for colon cancer.)
Social History
Tobacco: Non-smoker
Alcohol: Occasional
Drug: None
Personal:
Living: with family
Employment: Employed
Family History
Family History: Diabetes, Hypertension and CAD
Review of Systems
<Melida Sepulveda MD, Resident - Last Filed: 09/24/25 04:42>
Review of Systems
All Other Systems: ROS reviewed and negative except as documented in HPI and ROS
Phy Exam
<Melida Sepulveda MD, Resident - Last Filed: 09/24/25 04:42>
General Physical Exam
General Presentation: well appearing and no apparent distress
General Skin: warm and dry
General Habitus: normal
General Mental: alert
General Hydration: appears well hydrated
Cardiovascular Exam
Cardiovascular Exam: regular rate/rhythm, no edema, no murmur and normal peripheral pulses
Pulmonary Exam
Pulmonary Exam: lungs clear, no respiratory distress, no rales, no rhonchi and no wheezing
Gastrointestinal Exam
Gastrointestinal Exam: normal bowel sounds, non tender and soft
Neurological Exam
Neurological Exam: alert, oriented x3 and no motor deficits
Musculoskeletal Exam
Musculoskeletal Exam: other (Bilateral pedal pulses palpable, no calf tenderness, no edema, no cyanosis, skin warm and dry)
Skin Exam
Skin Exam: normal color, warm/dry, no rash and other (Precancerous lesions on skin )
Course
<Melida Sepulveda MD, Resident - Last Filed: 09/24/25 04:42>
Orders/Labs/Results
Orders:
Orders
09/24/25 04:24
US Periph Venous LOWER Ext Savage Urgent
Comment:
Reason For Exam: b/l LE edema, prior hx DVT
Vital Signs
Initial and Last Documented VS:
Initial Vital Signs
Temp Pulse Resp BP Pulse Ox
97.4 F 86 20 150/90 100
09/24/25 03:24 09/24/25 03:24 09/24/25 03:24 09/24/25 03:24 09/24/25 03:24
Last Documented Vital Signs
Temp Pulse Resp BP Pulse Ox
97.4 F 86 20 133/67 98
09/24/25 03:24 09/24/25 03:24 09/24/25 03:24 09/24/25 06:09 09/24/25 06:10
<Awilda Gonzales DO - Last Filed: 09/24/25 06:29>
Orders/Labs/Results
Orders:
Orders
09/24/25 04:24
US Periph Venous LOWER Ext Savage Urgent
Comment:
Reason For Exam: b/l LE edema, prior hx DVT
Vital Signs
Initial and Last Documented VS:
Initial Vital Signs
Temp Pulse Resp BP Pulse Ox
97.4 F 86 20 150/90 100
09/24/25 03:24 09/24/25 03:24 09/24/25 03:24 09/24/25 03:24 09/24/25 03:24
Last Documented Vital Signs
Temp Pulse Resp BP Pulse Ox
97.4 F 86 20 133/67 98
09/24/25 03:24 09/24/25 03:24 09/24/25 03:24 09/24/25 06:09 09/24/25 06:10
<Melida Sepulveda MD, Resident - Last Filed: 09/24/25 04:42>
MDM/Problems Addressed
Differential Diagnosis Includes:
DVT/PE
MDM/Problems Addressed:
Patient presents to ER, has chronic diabetic neuropathy, takes oxycodone 10 mg daily. Recently developed bilateral leg edema as a reaction to spironolactone, spironolactone dose reduced, Lasix added and swelling improved. Patient concerned about
blood clots given history of DVT/PE in the past.
Would check bilateral peripheral venous ultrasound
<Melida Sepulveda MD, Resident - Last Filed: 09/24/25 04:42>
*Pulse Oximetry
SaO2: 100
Oxygen Mode of Delivery: Room air
Patient hypoxic: no
*Critical Care Note
Total Time (30-74mins, 75-104mins- exclusive of procedures): Not Applicable
<Awilda Gonzales DO - Last Filed: 09/24/25 06:29>
*Radiology
Radiology exam reviewed: radiology read reviewed (Ultrasound bilateral lower extremities negative for DVT.)
ED Attending Note
<Melida Sepulveda MD, Resident - Last Filed: 09/24/25 04:42>
-
Portions of this chart may have been created with voice recognition software.� Occasional wrong word or��sound alike� substitutions may have occurred due to the inherent limitations of voice recognition software.
<Awilda Gonzales, - Last Filed: 09/24/25 06:29>
ED Attending Note
Patient seen and examined by attending physician: Yes
I performed a history and physical exam of patient and discussed management with resident, I reviewed resident's note and agree with documented findings and plan of care.: Yes
ED Attending Note:
This is an 79-year-old gentleman with history of CAD, hypertension, hyperlipidemia, insulin requiring diabetes. Remote history of colon cancer as well as history of DVT PE during treatment of colon cancer 8 years ago. He has history of diabetic
peripheral neuropathy and has been following with his valet parker over the past few months with adjustment in medications due to hypertension. Initially spironolactone was increased from 25 to 50 mg perhaps 8 weeks ago. Upon doing so patient
developed bilateral lower extremity swelling and perhaps 2 to 3 weeks ago spironolactone dose was decreased back to 25 mg and Lasix was added. With initiation of furosemide, lower extremity edema has greatly improved. Yesterday however while
working in his garden he developed some shortness of breath and he was concerned for possible DVT. He has not had a cough, no chest pain or palpitations. No fever.
79-year-old gentleman appears somewhat younger than stated age, bright alert, pleasant, appears in no acute distress.
Heart is regular rate and rhythm. No JVD.
Lungs are clear to auscultation. No respiratory distress.
Extremities: Trace pretibial edema. No tenderness. Peripheral pulses are full and equal bilaterally.
Overall well in appearance. He has had no recurrent episodes of dyspnea since yesterday afternoon.
No appreciable lower extremity edema and nothing on exam to suggest CHF.
Will check venous Doppler bilateral lower extremities.
06:25
Ultrasound bilateral lower extremities negative for DVT.
Patient remains well in appearance. No shortness of breath. Lungs are clear to auscultation. Remains asymptomatic.
Will discharge to home with recommendations to follow-up with his PCP as well as his valet parker.
Discharge Plan
Departure
Patient Disposition: Home (Routine Discharge)
Date of Disposition: 09/24/25
Time of Disposition:
Patient with high blood pressure during this ER visit?: No
Condition: Good
Discharge Problem:
Chronic leg pain, Breathlessness on exertion
Instructions: Peripheral neuropathy, Shortness of breath in adults - ED (DC)
Prescriptions:
No Action
aspirin 81 MG tablet,delayed release (DR/EC)
81 mg PO HS
oxycodone 5 MG tablet
5 mg PO Q6HPRN PRN (Reason: pain)
Patient Comments:
Last filled 06/09/23 #90 x30 day supply
insulin aspart U-100 [Novolog FlexPen U-100 Insulin] 100 unit/mL (3 mL) Insulin Pen
11 unit SC AC Qty: 5 0RF
Rx Instructions:
E11.65
insulin glargine [Lantus Solostar U-100 Insulin] 100 unit/mL (3 mL) Insulin Pen
22 unit SC HS Qty: 5 0RF
Rx Instructions:
E11.65
acetaminophen 325 mg Tablet
650 mg PO Q4HPRN PRN (Reason: mild pain,headache,temp >101F ) Qty: 0 0RF
gabapentin 400 mg Capsule
400 mg PO BID Qty: 60 0RF
metoprolol succinate 25 mg Tablet Extended Release 24 Hr
25 mg PO DAILY Qty: 30 1RF
atorvastatin 40 mg Tablet
40 mg PO HS Qty: 30 0RF
(DME) pen needle, diabetic [BD Ultra-Fine Vandana Pen Needle] 32 gauge x ' Needle
Qty: 200 0RF
Rx Instructions:
Use needles 4 x per day for insulin injections As Directed E11.65
lisinopril 5 mg tablet
5 mg PO DAILY Qty: 30 0RF
Referrals:
Nick Mccray MD [Family Provider, Family Practice]
Karel Gustafson DO [Active, Cardiology] - Call in 1-3 days for appt
Interventions
Interventions:
*Risk Screen - Suicide Last Done: 09/24/25 03:24
*General Assessment Last Done: 09/24/25 03:40
*Neglect/Abuse Screening Last Done: 09/24/25 03:24
*ED- Fall Risk Assessment Last Done: 09/24/25 03:40
*ED COVID-19 Vaccine History Last Done: 09/24/25 03:40
*ED Influenza Vaccine History Last Done: 09/24/25 03:40
ED-Skin Assessment Last Done: 09/24/25 03:41
ED-Peripheral Vascular Assessment Last Done: 09/24/25 03:42
ED-Musculoskeletal Assessment Last Done: 09/24/25 03:41
Discharge Date and Time
Print Language: TONGAN
[2025-09-24 05:00] VITALS: BP 116/67
[2025-09-24 06:09] VITALS: BP 133/67
== END 2025-09-24 06:42 | disposition home or self-care (01) ==
LOC: EMR 03:22
PROVIDERS: EMERGENCY PHYSICIAN Emergency Medicine; FAMILY PHYSICIAN Family Medicine
DX: M79.662 Pain in left lower leg (principal); M79.661 Pain in right lower leg; G89.29 Other chronic pain; R06.02 Shortness of breath; E11.42 Type 2 diabetes mellitus with diabetic polyneuropathy; I25.810 Atherosclerosis of coronary artery bypass graft(s) without angina pectoris; I10 Essential (primary) hypertension; E78.00 Pure hypercholesterolemia, unspecified; I25.2 Old myocardial infarction; Z79.4 Long term (current) use of insulin; Z79.82 Long term (current) use of aspirin; Z95.5 Presence of coronary angioplasty implant and graft; Z95.1 Presence of aortocoronary bypass graft; Z85.048 Personal history of other malignant neoplasm of rectum, rectosigmoid junction, and anus; Z86.711 Personal history of pulmonary embolism; Z86.718 Personal history of other venous thrombosis and embolism; Z92.21 Personal history of antineoplastic chemotherapy; Z90.49 Acquired absence of other specified parts of digestive tract; Z83.3 Family history of diabetes mellitus; Z82.49 Family history of ischemic heart disease and other diseases of the circulatory system
CPT/HCPCS: 99284; 93970

== ENCOUNTER → 2025-10-28 09:43 | Outpatient (REF) | payer OTHER, SELFPAY ==
[2025-10-28 10:30] LABS: Blood Urea Nitrogen 23 mg/dl (9-20); Calcium 8.9 mg/dl (8.4-10.2); Carbon Dioxide 27 mmol/L (22-30); Chloride 102 mmol/L (98-107); Glucose 113 mg/dl (70-99); Magnesium 1.7 mg/dl (1.6-2.3); Potassium 4.2 mmol/L (3.5-5.1); Sodium 139 mmol/L (135-145); eGFR 55.53
== END ==
LOC: REG 09:43
PROVIDERS: ATTENDING PHYSICIAN Nurse Practitioner; FAMILY PHYSICIAN Family Medicine
DX: I10 Essential (primary) hypertension (principal); N18.31 Chronic kidney disease, stage 3a
CPT/HCPCS: 36415; 80048; 83735